=== PATIENT | male | born 1940 | race Caucasian/White ===

== ENCOUNTER → 2018-01-30 | Outpatient (CLI) | payer MEDICARE, OTHER ==
[~2018-01-30] MED LIST: AMLO-99 PO; ASCO-182 PO; ASPI-1471 PO; ASPI-715 PO; BENZ100C26 PO; CHOL10005 PO; CLOP75TA PO; CYCL10TA29 PO; ECON15CR10 TP; FAMO-67 PO; FEBU40TA2 PO; LAC3 GT; LOR5/325 PO; METO50TA19 PO; NEXIUM; NITR0.4T3 SL; OMEP-137 PO; ONDA4TAB PO; PITA4TAB PO; PSYL660P5; SILD100T59 PO; SODI104S3; VIAGRA
--- NOTE | 2018-02-02 21:12 | RADIOLOGY IMAGING REPORT ---
FACILITY: [facility] PATIENT NAME: LYNDON RIVERA : [id number] MR: [id number] V: [id number] EXAM DATE: ORDERING PHYSICIAN: MARYJANE SAUL TECHNOLOGIST: Madeilne Hudson EXAMINATION:TWO-DIMENSIONAL ECHOCARDIOGRAPH REASON:HX ARTERIAL SCLEROTIC HEART DISEASE 2D Measurements (normal values in centimeters) LV endLV endRV endVent.LV PostAorticLeftPercent DiastolicSystolicDiastolicSeptumWallRootAtriumShortening (3.5-5.7)(0.9-2.6)(0.6-1.1)(0.6-1.1)(2.0-3.7)(1.9-4.0)(25-35%) [id number]% STROKE VOLUME: 88 ESTIMATED EJECTION FRACTION:63% PARASTERNAL LONG AXIS: Left ventricular systolic function appears to be normal. There is probably some akinesis at the apex of the left ventricle. Left atrium appears to be enlarged although this was a technically difficult echocardiograph. PARASTERNAL SHORT AXIS: Overall left ventricular function again appears to be within normal ranges. Aortic valve is trileaflet in configuration with aortic sclerosis & borderline aortic stenosis. Color examination of the valves reveals a trace of mitral & tricuspid insufficiency present. APICAL FOUR AND TWO CHAMBER: Left ventricular systolic function appears to be normal with akinesis at the apex of the left ventricle. Left atrial volume is severely increased at 48.4ml/m2. Right atrial volume is also moderate to borderline severely increased at 36.8ml/m2. Aortic valve area is measured at 1.7cm2 with a mean pressure gradient across the valve of 12mm Hg & a dimensionless index of .7. Color examination of the aortic valve was unremarkable. Color examination of the mitral valve revealed a trace of mitral insufficiency. There is also a trace of tricuspid insufficiency. The tricuspid regurgitation Vmax measured 2.77m/sec. No thrombi are noted in the left ventricle although there is akinesis at the apex. Definity contrast was used. SUBCOSTAL VIEW: No pericardial effusion was noted. No atrioseptal or ventriculoseptal defects were appreciated. Doppler examination of the mitral valve in diastole does reveal the A wave > E wave. OVERALL IMPRESSION: 1. Normal left ventricular ejection fraction measured at 63% with a Grade 1/4 decrease in diastolic function. There is akinesis of the apex of the left ventricle. No thrombus was noted in the apex & Definity contrast was used. 2. Moderate right atrial enlargement & severe left atrial enlargement by volume measurements. 3. A trileaflet aortic valve with a valve area of 1.7cm2 which is at the lower range of normal with a mean pressure gradient across the valve of 12mm Hg & a dimensionless index of .6. 4. Trace to mild amount of tricuspid insufficiency with an estimated right ventricular systolic pressure within normal ranges at 34mm Hg. 5. A trace to mild amount of mitral insufficiency with no mitral stenosis. 6. Pulmonic valve was not well seen. 7. In comparison with the examination done on 12/09/2016 the aortic valve area has slightly decreased in size from 1.86 to 1.7cm. The mean pressure gradient is only slightly increased from 8mm Hg to 12mm Hg. 8. Left atrial volume has increased from previous examination from 38 to 48ml. The right atrial volume has also increased from 21 to 37ml. Dictated by: Bismark Stevens M.D. on 01/30/2018 at 18:00 Transcribed by: ELIE on 02/02/2018 at 11:04 Approved by: Bismark Stevens M.D. on 02/02/2018 at 21:11 [facility]
== END ==
LOC: US 02:06
PROVIDERS: ATTEND Internal Medicine Cardiovascular Disease
DX: I50.30 Unspecified diastolic (congestive) heart failure (principal); R29.898 Other symptoms and signs involving the musculoskeletal system; I51.7 Cardiomegaly; I07.1 Rheumatic tricuspid insufficiency; I34.0 Nonrheumatic mitral (valve) insufficiency
CPT/HCPCS: C8929; Q9957

== ENCOUNTER → 2018-05-04 | Outpatient (CLI) | payer MEDICARE, OTHER ==
--- NOTE | 2018-05-04 11:34 | RADIOLOGY IMAGING REPORT ---
FACILITY: [facility] [place] PATIENT NAME: Tico Lambert : 1940 MR: [id number] V: [id number] EXAM DATE: ORDERING PHYSICIAN: DAMARIS BOWERS TECHNOLOGIST: Location: [facility] Patient: Tico Lambert : 1940 Visit/Account:[id number] Date of Sevice: 05/04/2018 C SPINE W/O CONTRAST COMPARISON: Report from previous CT of the cervical spine dated July 03, 2016 Additional pertinent history: None Technique: Multiplanar multisequence cervical spine MRI was performed without gadolinium enhancement. FINDINGS: Vertebral body height and alignment: Minimal grade 1 anterior listhesis of C7 on T1 Vertebral marrow signal: Negative Vertebral bodies: Mild anteriorly and posteriorly directed osteophytes at multiple levels. Cervical spinal cord signal, craniocervical junction and visualized posterior fossa: Negative Surrounding soft tissues: Negative Inspection of the disc spaces reveal the following: C1-C2: Negative C2-C3: Minimal circumferential disc bulging without significant canal or neural foraminal narrowing. C3-C4: Posterior broad-based disc protrusion with facet and uncovertebral degenerative changes. Mild to moderate bilateral neural foraminal narrowing with mild canal stenosis. C4-C5: Posterior broad-based disc protrusion with facet and uncovertebral degenerative changes. Sever e bilateral neural foraminal narrowing with moderate canal stenosis. C5-C6: Posterior broad-based disc protrusion with facet hypertrophic changes. Severe bilateral neural foraminal narrowing with severe canal stenosis. C6-C7: Posterior broad-based disc protrusion with a superimposed left neural foraminal disc extrusion . Severe left-sided neural foraminal narrowing. Moderate right-sided neural foraminal narrowing. No s ignificant canal stenosis. C7-T1: Minimal anterior listhesis of C7 on T1 with mild circumferential disc bulging. No significant canal or neural foraminal narrowing. Impression: 1. Multilevel spondylitic change as discussed above. 2. Findings felt to be potentially most significant at C5-C6 with severe canal stenosis and severe bi lateral neural foraminal narrowing. Report Dictated By: Gilbert Grullon MD at 05/04/2018 11:25 AM Report E-Signed By: Gilbert Grullon MD at 05/04/2018 11:30 AM WSN:[id number]
== END ==
LOC: MRI 01:31
PROVIDERS: ATTEND Family Medicine
DX: M47.892 Other spondylosis, cervical region (principal)
CPT/HCPCS: 72141

== ENCOUNTER → 2019-04-30 | Outpatient (CLI) | payer MEDICARE, OTHER ==
[~2019-04-30] MED LIST changes: +AMLO-127 PO; -AMLO-99 PO
== END ==
LOC: US 01:36
PROVIDERS: ATTEND Internal Medicine Cardiovascular Disease
DX: I35.0 Nonrheumatic aortic (valve) stenosis (principal); I51.3 Intracardiac thrombosis, not elsewhere classified
CPT/HCPCS: C8929; Q9957